=== PATIENT | male | born 1995 | race Two or more races ===

== ENCOUNTER → 2024-12-01 | Outpatient (BNVA) | payer MEDICAID, SELFPAY | END | disposition home or self-care (01) | PROVIDERS: PCP Physician Assistant; Referring Provider Physician Assistant; Visit Provider Urology | DX: N50.89 Other specified disorders of the male genital organs (principal); R35.0 Frequency of micturition; K21.9 Gastro-esophageal reflux disease without esophagitis | CPT/HCPCS: 81003; 99202; G0463 ==

== ENCOUNTER 2025-01-10 09:50 | Day surgery (SDC) | payer MEDICAID, SELFPAY ==
[2025-01-09 11:51] VITALS: BMI 25.5
[2025-01-10] VITALS (9 sets, daily range): BP systolic 104–133; BP diastolic 58–88; PULSE 70–95; RESP 12–20; TEMP 36.8; O2SAT 96–100; BMI 25.1
[2025-01-10] MEDS: RINGERS LACTATED 1000 ML 1,000 ML 20 ML IV (10:10)
--- NOTE | 2025-01-10 12:26 | PD.SUROPNT ---
Date of Procedure 01/10/25 Pre Op Diagnosis Mass lower portion left scrotum, left scrotal abscess Post Op Diagnosis Same Procedure Incision and drainage of the abscess, excision of necrotic tissue, excision of chronic granulomatous tissue Findings Abscess lower portion of left scrotum with the chronic granulomatous tissue and necrotic tissue Procedure Description Indication for procedure this is a 29-year-old gentleman this patient had mass in the lower portion of left scrotum in the inguinal scrotal crease area. Patient was recommended excision of the mass procedure and complications were discussed with the patient in great detail informed consent is obtained I had explained to patient healing is going to take time Patient was brought to the operating room in a satisfactory condition after appropriate premedication he was appropriately identified by surgeon and operating room staff site scope and indications of the procedure were reconfirmed with the patient General anesthesia was given uneventfully parts were prepped and draped in the usual sterile fashion mass in the lower portion of left scrotum was identified it was separate from left testicle. I injected local anesthetic in the skin of the mass transverse skin incision was made there was purulent abscess drained. There were other pockets of abscess which were drained. Underneath there was necrotic tissue excision was done and there was chronic granulomatous tissue which was excised. At the end of the procedure no active bleeding was seen wound was irrigated with antibiotic solution and the wound was left open and iodoform packing was done in the wound,pressure dressing was applied. Patient after having tolerated the procedure well was moved to recovery room in a satisfactory condition he will be followed up in urology office patient is recommended to change the dressing daily Patient disposition he is going to be discharged home on antibiotics and pain medication and follow-up appointment in urology office Anesthesia GETA Pathology / specimen Other (Scrotal abscess for culture and sensitivity, and chronic granulomatous tissue) Estimated Blood Loss 5.0 Condition Stable Disposition PACU Surgeon Kevan Sheikh MD Surgical Staff Operation Date: 01/10/25 12:15 Case Staff Anesthesiologist: Luis Felipe Bailon
[2025-01-10] MEDS: fentaNYL CIT INJ 50 mCg/ML AMP 2ML 25 MCG IV ×2 (12:46→13:01)
--- NOTE | 2025-01-10 13:24 | SUR.PHASEI ---
Addendum entered by Keyona Shaw RN 01/10/25 13:31: Note for 1301 girma be timed for 1246 not 1301. Original Note: 1220: Pt received in [facility] via gurney. Report from Jayne GALLEGO and Dr. Rosenberg. Oral airway in place. Resp even, unlabored. VS stable. Dressing to scrotum dry, clean, intact secured with scrotal support. 1230: Oral airway dc'd. Resp even, unlabored. 1301: Pt awake with c/o pain to scrotum. Rates pain level 8/10. VS stable. Resp even, unlabored. Pain medication given per order.
--- NOTE | 2025-01-10 13:31 | SUR.PHASEI ---
1255: Pt states pain level coming down. VS stable. Resp even, unlabored. Pt resting more comfortable at this time. 1301: Pt stating pain level coming back up. VS stable. Resp even, unlabored. Pain medication given per order.
--- NOTE | 2025-01-10 13:33 | SUR.PHASEII ---
1320: Pt stating pain level down and much more tolerable. VS stable. Dressing remains dry, clean, intact. Pt sitting up tolerating po fluids with no difficulty swallowing and no n/v.
--- NOTE | 2025-01-10 16:31 | SUR.PHASEII ---
1340: Pt stated pain level is very tolerable and he is much more comfortable. VS stable. Dressing remains dry, clean, intact. Girlfriend at bedside. 1355: Pt fully awake, oriented x3. Pt dressed. Assisted to transport chair. Ambulation steady. Pt and girlfriend stated understanding of discharge instructions. Pt discharged from [facility] in stable condition.
== END 2025-01-10 13:55 | disposition home or self-care (01) ==
PROVIDERS: PCP Physician Assistant; Referring Provider Urology; Visit Provider Urology
PROC: (CPT 54700; principal; 2025-01-10 12:00)
DX: N49.2 Inflammatory disorders of scrotum (principal)
CPT/HCPCS: 55100; 87070; 87077; 87186; 87205; A4217; A4649; J1580; J1885; J2250; J2405; J2704; J2765; J3010; J3490; J7120; J0665

== ENCOUNTER → 2025-01-12 | Outpatient (BNVA) | payer MEDICAID, SELFPAY | END | disposition home or self-care (01) | PROVIDERS: PCP Physician Assistant; Referring Provider Physician Assistant; Visit Provider Urology | DX: N49.2 Inflammatory disorders of scrotum (principal); Z48.01 Encounter for change or removal of surgical wound dressing | CPT/HCPCS: 81003; 99212; G0463 ==

== ENCOUNTER → 2025-01-15 | Outpatient (BNVA) | payer MEDICAID, SELFPAY | END | disposition home or self-care (01) | PROVIDERS: PCP Physician Assistant; Referring Provider Physician Assistant; Visit Provider Urology | DX: N49.2 Inflammatory disorders of scrotum (principal) | CPT/HCPCS: 99212; G0463 ==

== ENCOUNTER → 2025-03-12 | Outpatient (BNVA) | payer MEDICAID, SELFPAY | END | disposition home or self-care (01) | PROVIDERS: PCP Physician Assistant; Referring Provider Physician Assistant; Visit Provider Urology | DX: Z48.817 Encounter for surgical aftercare following surgery on the skin and subcutaneous tissue (principal) | CPT/HCPCS: 81003; 99212; G0463 ==

== ENCOUNTER 2025-08-08 21:05 | Emergency (ER) | payer MEDICAID, SELFPAY ==
[2025-08-08 21:07] VITALS: BMI 25.9
[2025-08-08 21:10] VITALS: BP 136/89; PULSE 100; RESP 20; TEMP 36.9; O2SAT 96
--- NOTE | 2025-08-08 21:21 | XR_ITS ---
Examination: Testicular sonography complete Technique: Grayscale sonographic images testes, assessment arterial inflow venous outflow Doppler spectral analysis carful analysis Date and time: August 08, 2025 2145 hrs., Comparison September 14, 2024 Indications: Left testicle swelling beginning 2 days ago, history removal abscess in the left scrotal sac last year Findings: Right testis 4.8 cm epididymis 13 mm 4 mm epididymal cyst Arterial flow testicle. No testicular mass Minimal hydrocele Left testis 4.7 cm epididymis 15 mm 5 mm epididymal cyst Arterial flow testicle No testicular mass Vascular mass in the scrotal sac lateral to the testicle, 2.0 x 1.0 x 1.3 cm Impression: No testicular torsion or testicular mass 2.0 x 1.0 x 1.3 cm vascular mass in the scrotal sac, abscess included in the differential
--- NOTE | 2025-08-08 21:23 | PD.EDSKIN ---
ED Skin Abcess FB-RME/HPI General Chief complaint: Skin/Abscess/Foreign Body Stated complaint: ABSCESS ON LEFT SIDE OF SCROTUM Time Seen by Provider: 08/08/25 21:21 Arrival date/time: 08/08/25 21:05 RME / HPI RME / HPI narrative: 29-year-old male patient came in for evaluation regarding left testicular swelling and puslike drainage. Onset of symptoms for the last few days, getting worse today, associated with low-grade fever yesterday. Patient had an abscess left testicle, status post I&D, by Dr. Sheikh last December. Family called the clinic of Dr. Sheikh, and was advised to follow-up with PCP. Seen by PCP, and was started on doxycycline, which the patient started to take yesterday. Patient is concerned because the swelling tenderness and puslike drainage is getting worse today. No fever today. Patient is ambulatory. Related Data Previous Rx's ?Medication ?Instructions ?Recorded cephalexin 500 mg capsule 500 mg PO QID 10 days #40 caps 08/09/25 hydrocodone 5 mg-acetaminophen 325 1 tab PO Q8H PRN pain #14 tabs 08/09/25 mg tablet Allergies Allergy/AdvReac Type Severity Reaction Status Date / Time strawberry Allergy Severe Difficulty Verified 03/12/25 08:12 Breathing Review of Systems Review of Systems Narrative Review of Systems: Review of system reviewed and within normal limits except mentioned in HPI ED Exam Narrative Physical exam: VITAL SIGNS: Reviewed. GENERAL APPEARANCE: Alert and interactive, follows commands, no acute distress, HEAD AND FACE: Non-traumatic. ENT: PERRL, pink conjunctivitis, eyelid no trauma, Mucous membrane moist. NECK: Supple, nontender, no nuchal rigidity. CHEST: No tenderness, no crepitus, no paradoxical movement, no retractions. LUNGS: Clear, well ventilated, symmetric, no rales, no wheezing, no ronchi, no stridor, good breath sounds bilaterally. HEART: Regular rate, regular rhythm, no murmur, no gallops. ABDOMEN: Soft, positive bowel sounds, nondistended, no guarding, nontender, no rebound, no masses, RECTAL: Deferred. GENITAL: Tenderness and swelling to the left testicular area, lateral to the testicle. With puslike drainage NEUROLOGICAL: Gross motor function intact sensory function intact, Appropriate for age. MUSCULOSKELETAL: low back nontender, full range of motion. EXTREMITIES: Nontender, full range of motion. SKIN: Color pink, dry, no rash, no lacerations, no abrasions, no contusions. LYMPHATICS: Deferred. Course Quality Measures none Orders Category Date Time Status Insert IV NOW Care 08/08/25 21:43 Completed US scrotum Stat Exams 08/08/25 21:21 Completed Blood Culture (Lab) Stat Lab 08/08/25 21:43 Received CBC [CBC] Stat Lab 08/08/25 21:33 Completed CMP [Comprehensive Metabolic Panel] Stat Lab 08/08/25 21:33 Completed Lactate (Lactic Acid) Stat Lab 08/08/25 21:33 Completed Procalcitonin Stat Lab 08/08/25 21:33 Completed UA, C/S IF [Urinalysis, C/S if Indicated] Stat Lab 08/08/25 21:48 Completed Ketorolac Inj [Toradol Inj] Med 08/08/25 21:23 Discontinued 30 mg IVP X1 ONE Piper/Tazo 3.375 gm Premix [Zosyn] Med 08/08/25 21:23 Discontinued 3.375 gm in 50 ml IV X1 Vancomycin Inj 1,000 mg Med 08/08/25 23:48 Discontinued Sodium Chloride 0.9% 250 ml [Ns] 250 ml IV X1 Vital Signs Vital signs: Vital Signs Temperature 98.4 F 08/08/25 21:10 Pulse Rate 100 08/08/25 21:10 Respiratory Rate 20 08/08/25 21:10 Blood Pressure 136/89 H 08/08/25 21:10 Pulse Oximetry (%) 96 08/08/25 21:10 Oxygen Delivery Method Room Air 08/08/25 21:10 Skin / Abscess / Foreign Body MDM Narrative MDM Narrative:: 29-year-old male patient came in for evaluation regarding left testicular swelling and puslike drainage. Onset of symptoms for the last few days, getting worse today, associated with low-grade fever yesterday. Patient had an abscess left testicle, status post I&D, by Dr. Sheikh last December. Family called the clinic of Dr. Sheikh, and was advised to follow-up with PCP. Seen by PCP, and was started on doxycycline, which the patient started to take yesterday. Patient is concerned because the swelling tenderness and puslike drainage is getting worse today. No fever today. Patient is ambulatory. Patient CBC showed leukocytosis of 13.7 CMP unremarkable Pro-Viet is normal urinalysis no UTI ultrasound scrotum showed Vascular mass in the scrotal sac lateral to the testicle, 2.0 x 1.0 x 1.3 cm Impression: No testicular torsion or testicular mass 2.0 x 1.0 x 1.3 cm vascular mass in the scrotal sac, abscess included in the differential Patient received IV Zosyn. I tried to call Dr. Sheikh several times, no answer, Patient is to be transferred for scrotal abscess. Patient agrees with the plan to transfer him somewhere else with urologist on-call available. Care transfer to Dr Olivia for further management and transfer. Patient data External records reviewed:: None Clinical information provided by:: patient Social determinants that could affect healthcare access:: none Patient has the following chronic illnesses:: History of left scrotal abscess How is presenting disease/condition affected by chronic disease/condition?: exacerbated by Evaluation data The following diagnostics were reviewed and interpreted by me:: lab results and radiology exam(s) Lab and/or radiology exams considered but not ordered:: None Interpretation Summary: See results MDM Medications / Prescriptions Medications or Prescriptions considered but not ordered:: None Medication administrations:: Medication Administration History Discontinued Medications Piperacillin/Tazobactam/Dextrose (Zosyn) 3.375 gm in 50 mls @ 100 mls/hr IV X1 ONE; Protocol Stop: 08/08/25 21:52 Last Infusion: 08/08/25 22:43 Dose: Infused Documented By: Admin: 08/08/25 22:06 Dose: 100 mls/hr Documented By: RUDY Vancomycin HCl 1,000 mg/ (Sodium Chloride) 250 mls @ 150 mls/hr IV X1 ONE Stop: 08/09/25 01:27 Last Infusion: 08/09/25 01:42 Dose: Infused Documented By: Admin: 08/08/25 23:59 Dose: 150 mls/hr Documented By: RUDY Ketorolac Tromethamine (Ketorolac Inj 30 Mg/Ml Vial) 30 mg IVP X1 ONE Stop: 08/08/25 21:24 Last Admin: 08/08/25 22:06 Dose: 30 mg Documented By: RUDY Toradol and Zosyn Consultations Consultation(s) initiated? (list below): No Diagnosis Skin/Abscess Differential Diagnosis: abscess of skin or subcutaneous tissue and cellulitis Most likely diagnosis given after review of the tests above:: Scrotal abscess Admission Indicated Admission indicated?: indicated Admission Request Was there a request for admission?: No Disposition Plan Disposition Plan: other (specify) (Pending disposition final, possible discharge versus transfer) Discharge Plan Plan Patient Disposition: HOME (Self Care) Patient condition on transfer: Stable Prescriptions/Referrals Prescriptions/Med Rec: New cephalexin 500 mg capsule 500 mg PO QID 10 Days Qty: 40 0RF hydrocodone-acetaminophen 5-325 mg tablet 1 tab PO Q8H MDD 3 PRN (Reason: pain) Qty: 14 0RF Referrals: Temporary Provider,ED [Physician, Emergency Medicine] - In 1 week Problem List Clinical Impression: Scrotal mass Patient/Caregiver Discharge Instructions Discharge Activity: activity as tolerated Additional Instructions: Follow-up with urology as soon as it is possible. You have an appointment already with Dr. Salgado, see if your appointment can sooner in 1 to 2 days. Take the antibiotics as prescribed 4 times a day. Also you have been given hydrocodone to use for severe pain as necessary. For all other pain take Tylenol 500 mg 1 to 2 tablets every 6 hours with Advil 200 mg 2 tablets also every 6 hours as needed for pain. If you cannot be seen locally consider going to [facility] to their clinics and ask for urology to evaluate you. Print Language: Japanese Stand Alone Forms: Marie Award Info., Patient Portal Info Letter
[2025-08-08 21:40] LABS: Lactate (Lactic Acid) 1.3 mMol/L (0.4-2.0)
[2025-08-08 21:41] LABS: Basophils # (Auto) 0.0 Thou/mm3 (0.0-0.2); Basophils % (Auto) 0 % (0-2.5); Eosinophils # (Auto) 0.0 Thou/mm3 (0.0-0.5); Eosinophils % (Auto) 0 % (0-10); Hematocrit 41.0 % (41.0-53.0); Hemoglobin 13.5 g/dL (13.5-16.0); Immature Granulocytes Auto 0.05 Thou/mm3 (0.00-0.00); Lymphocytes # (Auto) 2.6 Thou/mm3 (1.0-4.8); Lymphocytes % (Auto) 19 % (10-50); Mean Corpuscular HGB Conc 32.9 g/dl (31.0-37.0); Mean Corpuscular Hemoglobin 29.8 pg (25.0-35.0); Mean Corpuscular Volume 91 fL (80-100); Monocytes # (Auto) 0.8 Thou/mm3 (0.0-0.8); Monocytes % (Auto) 6 % (0-12); Neutrophils # (Auto) 10.2 Thou/mm3 (1.8-7.7); Neutrophils % (Auto) 74 % (37-80); Nucleated Red Blood Cell # 0.00 Thou/mm3 (0.00-0.00); Nucleated Red Blood Cell % 0 /100 WBC (0); Platelet Count 220 Thou/mm3 (140-440); RDW Standard Deviation 40.6 fL (35.1-43.9); Red Blood Count 4.53 Miln/mm3 (4.50-5.90); White Blood Count 13.7 Thou/mm3 (3.8-10.6)
[2025-08-08 22:04] LABS: Collection Type, Urine Clean Catch; Squamous Epithelial Cell,Urine 0 /hpf (0-5)
[2025-08-08] MEDS: KETOROLAC INJ 30 MG/ML VIAL IVP (22:06)
[2025-08-08] MEDS: PIPER/TAZO 3.375 GM PREMIX 3.375 GM/50 ML BAG IV (22:06)
[2025-08-08 22:16] LABS: Alanine Aminotransferase 7 U/L (10-49); Albumin, Serum 4.9 gm/dL (3.5-5.0); Albumin/Globulin Ratio 2.0 (1.2-2.2); Alkaline Phosphatase 95 U/L (46-116); Anion Gap 9 (7-16); Aspartate Amino Transferase 16 U/L (0-34); BUN/Creatinine Ratio 14 Ratio (12-20); Bilirubin,Total 0.4 mg/dL (0.3-1.2); Blood Urea Nitrogen 14 mg/dL (9-23); Calcium 10.0 mg/dL (8.3-10.6); Calcium (Corrected) 10.0 mg/dL (8.5-10.1); Carbon Dioxide 26.9 mMol/L (20.0-31.0); Chloride 106 mMol/L (98-107); Creatinine (Component) 1.0 mg/dL (0.6-1.3); Estimated Creatinine Clearance 102.8 mL/min (>60); Globulin 2.5 gm/dL (2.3-3.5); Glucose 107 mg/dL (74-106); Osmolality,Calculated 283 (275-295); Potassium 3.9 mMol/L (3.4-5.1); Procalcitonin 0.04 ng/ml (0.0-0.49); Sodium 142 mMol/L (136-145); Total Protein 7.4 gm/dL (5.7-8.2); eGFR > 60 See Note
[2025-08-08 22:21] LABS: Amorphous Crystals,Urine Present (Absent); Bilirubin,Urine Negative (Negative); Blood,Urine 1+ (Negative); Calcium Oxalate Crystals,Urine Rare; Clarity,Urine Clear (Clear/Hazy); Color,Urine Yellow (Lt Yel-Yel); Culture Indicated,Urine Not Indicated; Glucose, Urine Negative (Negative); Ketones,Urine Negative (Negative); Leukocyte Esterase,Urine Negative (Negative); Nitrite,Urine Negative (Negative); PH,Urine 6.0 (5.0-7.0); Protein,Urine Trace (Neg - Trace); Specific Gravity,Urine 1.042 (1.001-1.035); Urobilinogen,Urine Negative mg/dL (0.0-1.0); WBC,Urine 2 /hpf (0-5)
[2025-08-08 22:22] LABS: RBC,Urine 10 /hpf (0-3)
[2025-08-08] MEDS: Vancomycin Inj 1,000 MG in SODIUM CHLORIDE 0.9% 250 ML 250 ML 150 MG IV (23:59)
--- NOTE | 2025-08-09 05:33 | PD.EDADDENDU ---
Emergency Room Addendum Addendum Narrative: 0000: Care assumed from Shantal Macias NP (emergency mid-level provider). Past medical, surgical, social and family history reviewed. Vitals and home medications reviewed. Results and treatment plan discussed. I will assume the care of the patient at this time and will follow the patient, pending consult with Dr. Sheikh. The following addendum documentation note is intended to reflect any pending information, findings, or radiology results not included in the patient?s initial chart by the previous shift scribe. 0600: Care assumed by Dr. Hoffmann (emergency physician). Past medical, surgical, social and family history reviewed. Vitals and home medications reviewed. Results and treatment plan discussed. They will assume the care of the patient at this time and will follow the patient, pending consult with Dr. Sheikh.
--- NOTE | 2025-08-09 08:00 | PD.EDADDENDU ---
Emergency Room Addendum Addendum Narrative: Care assumed from . Past medical, surgical, social and family history reviewed. Vitals and home medications reviewed. Results and treatment plan discussed. I will assume the care of the patient at this time and will follow the patient. Please refer to the emergency department record for history and examination from initial visit. Testicular ultrasound was done that showed a 2.0 0.0 x 1.3 cm vascular mass in the scrotal sac abscess included in the differential diagnosis. Patient was examined by me and he has a mass in the left scrotal sac next to prior incision site. It is slightly tender to palpation. There is no erythema or heat. There is no drainage. Assessment is mass left scrotal sac. Patient has been given IV antibiotics. He has slight tenderness. Question is whether this is vascular or an abscess so no attempted incision will be made. Patient does have a urologist Dr. Bard lozano and will be referred to him as an outpatient follow-up. Patient will be started on antibiotics and anti-inflammatories as well as hydrocodone. The antibiotic will be Keflex 500 mg 1 p.o. every 6 hours x 10 days. Patient remained stable while under my care.
== END 2025-08-09 08:30 | disposition home or self-care (01) ==
PROVIDERS: Nurse Practitioner Family; Emergency Provider Emergency Medicine; PCP Internal Medicine Infectious Disease
DX: N50.89 Other specified disorders of the male genital organs (principal); N49.2 Inflammatory disorders of scrotum
CPT/HCPCS: 36415; 76870; 80053; 81001; 83605; 84145; 85025; 87040; 96365; 96366; 96375; 99283; J1885; J2543; J3373; J7050